=== PATIENT | male | born 1985 | race Caucasian/White ===

== ENCOUNTER 2018-03-03 10:27 | Emergency (ER) | payer SELFPAY ==
[~2018-03-03] VITALS: Ht 193 cm; Wt 97.5 kg
[~2018-03-03 10:27] MED LIST: ONDA4 PO; OXYACE5T PO; PRED20 PO; TRAM50 PO
[2018-03-03] MEDS ORDERED: CYCL10 PO (11:03)
[2018-03-03] MEDS ORDERED: PREG25 PO (11:03)
[2018-03-03] MEDS ORDERED: METPRE4DP PO (12:04)
[2018-03-03] MEDS ORDERED: KETO10 PO (12:04)
[2018-03-03] MEDS ORDERED: Percocet 5-3251 EACH PO (12:04)
== END 2018-03-03 12:31 | disposition home or self-care (01) ==
LOC: ER 10:27
DX: G89.29 Other chronic pain (principal); M54.5 Low back pain
CPT/HCPCS: 96372; 96374; 99284-25; J1885; J3010

== ENCOUNTER 2019-02-10 15:44 | Emergency (ER) | payer OTHER ==
[~2019-02-10] VITALS: Ht 193 cm; Wt 97.5 kg
[~2019-02-10 15:44] MED LIST changes: +CEPH500 PO; +CYCL10 PO; +KETO10 PO; +METPRE4DP PO; +PREG25 PO; +Percocet 5-3251 EACH PO
[2019-02-10] MEDS ORDERED: Keflex500 MG PO (16:45)
== END 2019-02-10 17:00 | disposition home or self-care (01) ==
LOC: ER 15:44
DX: S61.012A Laceration without foreign body of left thumb without damage to nail, initial encounter (principal); M54.9 Dorsalgia, unspecified; G89.29 Other chronic pain; W45.8XXA Other foreign body or object entering through skin, initial encounter
CPT/HCPCS: 12020; 99282-25

== ENCOUNTER → 2019-03-27 | Outpatient (CLI) | payer OTHER ==
[~2019-03-27] MED LIST changes: +Keflex500 MG PO
[2019-03-27 14:32] LABS: BASOPHILS ABSOLUTE AUTO 0.04 K/mm3 (0.00-0.23); BASOPHILS PERCENT AUTO 1 % (0-2); EOSINOPHILS ABSOLUTE AUTO 0.16 K/mm3 (0.00-0.68); EOSINOPHILS PERCENT AUTO 2 % (0-6); Hemoglobin 15.3 g/dL (13.5-17.5); IMMATURE GRAN ABSOLUTE AUTO 0.02 K/mm3 (0.00-0.10); IMMATURE GRAN PERCENT AUTO 0 % (0-1); LYMPHOCYTES ABSOLUTE AUTO 1.44 K/mm3 (0.84-5.20); LYMPHOCYTES PERCENT AUTO 18 % (21-46); MONOCYTES ABSOLUTE AUTO 1.03 K/mm3 (0.16-1.47); MONOCYTES PERCENT AUTO 13 % (4-13); Mean Corpuscular HGB 27.9 pg (26.0-34.0); Mean Corpuscular Volume 82 fL (80-100); Mean Platelet Volume 11.9 fL (9.1-12.4); NEUTROPHILS ABSOLUTE AUTO 5.35 K/mm3 (1.96-9.15); NEUTROPHILS PERCENT AUTO 67 % (41-73); Platelet Count 112 K/mm3 (150-400); RDW Coefficient Variation 12.9 % (11.7-14.2); RDW Standard Deviation 38.2 fL (35.1-46.3); Red Blood Cell Count 5.48 M/mm3 (4.30-5.90); White Blood Cell Count 8.04 K/mm3 (4.00-11.30)
[2019-03-27 14:45] LABS: Alanine Aminotransfer (ALT/SGP 37 U/L (12-78); Albumin, Blood 3.7 g/dL (3.4-5.0); Albumin/Globulin Ratio 1.1 (0.8-1.8); Alk Phos 120 U/L (40-126); Anion Gap 8 mmol/L (6-16); Aspartate Aminotrans (AST/SGOT 28 U/L (12-37); Bilirubin, Total 0.5 mg/dL (0.1-1.0); Blood Urea Nitrogen 10 mg/dL (8-24); Bun/Creatinine Ratio 9.5 (12.0-20.0); CO2, Blood 29 mmol/L (21-32); Calcium, Blood 8.6 mg/dL (8.5-10.1); Chloride, Blood 104 mmol/L (98-108); Creatinine, Blood 1.05 mg/dL (0.60-1.20); Globulin, Blood 3.5 g/dL (2.2-4.0); Glomerular Filtration Rate >60 (60-); Glucose, Blood 81 mg/dL (70-99); Sodium, Blood 141 mmol/L (136-145); Thyroid Stimulating Hormone 5.582 uIU/mL (0.360-4.800); Total Protein, Blood 7.2 g/dL (6.4-8.2)
== END ==
LOC: LAB SHORT 13:57 → LAB EV 13:57
PROVIDERS: Physician Assistant Medical
DX: L03.019 Cellulitis of unspecified finger (principal); R53.83 Other fatigue
CPT/HCPCS: 80053; 84439; 84443; 84481; 85025; 87070; 87077; 87147; 87186; 87205

== ENCOUNTER 2020-06-21 21:55 | Emergency (ER) | payer OTHER ==
[~2020-06-21] VITALS: Ht 193 cm; Wt 102.1 kg
[2020-06-21] MEDS ORDERED: AMOCLA875 PO (22:47)
== END 2020-06-21 22:58 | disposition home or self-care (01) ==
LOC: ER 21:55
DX: L03.012 Cellulitis of left finger (principal)
CPT/HCPCS: 99283; A9270

== ENCOUNTER → 2021-04-19 | Outpatient (CLI) | payer OTHER ==
[~2021-04-19] MED LIST changes: +AMOCLA875 PO
[2021-04-22 05:09] LABS: CHLAMYDIA BY NAA Negative (Negative); GONOCOCCUS BY NAA Negative (Negative); TRICH VAG BY NAA Negative (Negative)
== END | disposition home or self-care (01) ==
LOC: LAB 17:26 → LAB SHORT 17:26
PROVIDERS: Chiropractor
DX: Z72.51 High risk heterosexual behavior (principal)
CPT/HCPCS: 87491; 87591; 87661

== ENCOUNTER → 2022-11-14 | Outpatient (CLI) | payer OTHER ==
[2022-11-15 23:10] LABS: CHLAMYDIA TRACHOMATIS, NAA Positive (Negative)
== END | disposition home or self-care (01) ==
LOC: LAB SHORT 11:00 → LAB 11:00
PROVIDERS: Physician Assistant
DX: R30.0 Dysuria (principal)
CPT/HCPCS: 87491; 87591